=== PATIENT | female | born 1970 | race Caucasian/White ===

== ENCOUNTER 2019-03-04 06:50 | Day surgery (SDC) | payer BC ==
[~2019-03-04 06:50] MED LIST: Lactated Ringers 1,000 ML IV SCH; Lidocaine 1%/Sod Bicarbonate in NS 8.4% 1 ML Syringe IDERM PRN; Sodium Chloride 0.9% 10 ML Syringe FLUSH PRN
[2019-03-04] MEDS ORDERED: Lidocaine 1% 30 ML SDV ONE (06:52)
[2019-03-04] MEDS ORDERED: Triamcinolone Acetonide 40 MG/ML 1 ML MDV ONE (06:52)
[2019-03-04] MEDS: Bupivacaine 0.25% 10 ML SDV ONE ×2 (07:33→07:45)
--- NOTE | 2019-03-08 17:09 | PCM.OPNOTE ---
- General Post-Op/Procedure Note Date of Surgery/Procedure: 03/04/19 Operative Procedure(s): left carpal tunnel release with right carpal tunnel injection Pre Op Diagnosis: bilateral median nerve compression neuropathy Post-Op Diagnosis: Same Anesthesia Technique: Local Primary Surgeon: Larry Hooker Professional Fighter: Magy Arevalo in mLs: 5 Complications: None Condition: Good
--- NOTE | 2019-03-09 11:21 | OR ---
DATE OF OPERATION: 03/04/2019 SURGEON: Larry Hooker MD OPERATION PERFORMED: Left carpal tunnel release with right carpal tunnel injection. PREOPERATIVE DIAGNOSIS: Bilateral median nerve compression neuropathy. POSTOPERATIVE DIAGNOSIS: Bilateral median nerve compression neuropathy. ANESTHESIA: Local only. CLINICAL SCIENCES PROFESSOR: Magy Arevalo PA-C. ESTIMATED BLOOD LOSS: Less than 5 mL. COMPLICATIONS: None. CONDITION: Stable. ANESTHESIA PROVIDER: None. DESCRIPTION OF PROCEDURE: The patient was identified in the preop holding area. Proper site was marked and identified by the surgeon. The patient was taken back to the operating theater where after adequate anesthesia, the patient's left upper extremity was sterilely prepped and draped in the usual sterile fashion. OR time-out was performed. The patient did not receive antibiotics and it is not indicated for soft tissue hand procedure. At this time, the left upper extremity was exsanguinated and an Esmarch was used as a tourniquet on the forearm. At this time, using 1% lidocaine without epinephrine and 0.25% Marcaine without epinephrine, the palmar cutaneous branch of the median nerve was anesthetized and then the incisional site was anesthetized using Castaneda cardinal line and ulnar border of the fourth digit as reference. Once this had set up, an incision was made. Blunt dissection was taken down to the palmar cutaneous fascia. Palmar cutaneous fascia was incised with a Knik blade. At this time, the transverse carpal ligament was identified. A small rent was made in the transverse carpal ligament with a Knik blade under direct visualization. Resection of the transverse carpal ligament was done distally using tenotomy scissors making sure to stop short of the palmar arch. At this time, attention was turned proximally after it was found to be adequately released. Using the tenotomy scissors keeping the tips ulnar to protect the palmar cutaneous branch of the median nerve, the superficial forearm fascia as well as the transverse carpal ligament were resected proximally. It was found to be adequate release both proximally and distally. At this time, adequate saline was irrigated through the wound. 4-0 nylon sutures were used closure of the skin. The patient was placed in a sterile soft dressing and sent to PACU in stable condition. After this was completed, under sterile technique, 1 mL of 40 mg of Kenalog and 2 mL of 0.25% Marcaine were injected at the right carpal tunnel. The patient tolerated both procedures well. JANEEN: 03/09/2019 10:58:41 MARC /[id number]
== END 2019-03-04 08:05 | disposition home or self-care (01) ==
LOC: JD.SDS 06:50
PROVIDERS: ATTEND Orthopaedic Surgery
DX: G56.03 Carpal tunnel syndrome, bilateral upper limbs (principal); I10 Essential (primary) hypertension; E03.9 Hypothyroidism, unspecified; E66.3 Overweight; Z68.31 Body mass index [BMI] 31.0-31.9, adult; Z79.899 Other long term (current) drug therapy
CPT/HCPCS: 64721; 87641; J2001; J3301; J3490

== ENCOUNTER 2022-07-17 16:03 | Emergency (ER) | payer BC ==
[2022-07-17] MEDS ORDERED: Sodium Chloride 0.9% 1,000 ML IV ONE (16:39)
[2022-07-17] MEDS ORDERED: Ondansetron 4 MG/2 ML SDV IVPUSH ONE (16:39)
[2022-07-17] MEDS ORDERED: HYDROmorphone 0.5 MG/0.5 ML Syringe IVPUSH ONE ×2 (16:39→17:39)
[2022-07-17] MEDS ORDERED: Sodium Chloride 0.9% 10 ML Syringe FLUSH PRN (16:39)
[2022-07-17] MEDS ORDERED: Piperacillin/Tazobactam 4.5 GM in Sodium Chloride 0.9% 100 ML IV ONE (18:18)
[2022-07-17] MEDS ORDERED: Rocuronium 50 MG/5 ML Vial ONE (18:37)
[2022-07-17] MEDS ORDERED: Bupivacaine 0.5%/EPINEPHrine 1:200,000 50 ML MDV ONE (18:37)
[2022-07-17] MEDS ORDERED: Midazolam 1 MG/ML 2 ML SDV ONE (18:37)
[2022-07-17] MEDS ORDERED: Propofol 200 MG/20 ML SDV ONE (18:37)
[2022-07-17] MEDS ORDERED: fentaNYL 250 MCG/5 ML SDV ONE (18:37)
[2022-07-17] MEDS ORDERED: Lidocaine 1% with EPINEPHrine 1:100,000 10 ML MDV ONE (18:37)
[2022-07-17] MEDS ORDERED: Ondansetron 4 MG/2 ML SDV ONE (18:37)
[2022-07-17] MEDS ORDERED: Lidocaine 1% 5 ML VIAL ONE (18:37)
[2022-07-17] MEDS ORDERED: Dexamethasone 4 MG/ML 5 ML MDV ONE (19:26)
[2022-07-17] MEDS ORDERED: Neostigmine Methylsulfate 10 MG/10 ML MDV ONE (19:44)
[2022-07-17] MEDS ORDERED: Ketorolac 30 MG/ML SDV ONE (20:16)
[2022-07-17] MEDS ORDERED: Acetaminophen/oxyCODONE 325-5 MG Tab ONE (21:02)
== END 2022-07-17 19:23 | disposition other institution (70) ==
LOC: JD.ED 16:03 → MERGE 16:03 → JD.ED 19:23
DX: K35.80 Unspecified acute appendicitis (principal); E03.9 Hypothyroidism, unspecified; E66.9 Obesity, unspecified; Z68.31 Body mass index [BMI] 31.0-31.9, adult; Z79.899 Other long term (current) drug therapy
CPT/HCPCS: 36415; 74177; 80053; 83735; 85025; 86140; 96361; 96365; 96375; 96376; 99285; J1100; J1170; J1885; J2250; J2405; J2543; J2704; J2710; J3010; J3490; J7030

== ENCOUNTER 2023-03-10 05:55 | Day surgery (SDC) | payer BC ==
[2023-03-10] MEDS ORDERED: Lidocaine 1% 10 ML MDV ONE (06:07)
[2023-03-10] MEDS ORDERED: Bupivacaine 0.25% 10 ML SDV ONE (06:07)
== END 2023-03-10 07:19 | disposition home or self-care (01) ==
LOC: JD.SDS 05:55
PROVIDERS: ATTEND Orthopaedic Surgery
DX: G56.01 Carpal tunnel syndrome, right upper limb (principal); E03.8 Other specified hypothyroidism; F32.A Depression, unspecified; Z98.890 Other specified postprocedural states; Z79.899 Other long term (current) drug therapy; Z79.890 Hormone replacement therapy
CPT/HCPCS: 64721; J3490

== ENCOUNTER 2023-04-22 17:13 | Emergency (ER) | payer OTHER, BC ==
[2023-04-22] MEDS ORDERED: Lidocaine 1% 5 ML VIAL INJECT ONE (17:23)
[2023-04-22] MEDS ORDERED: Diphtheria,Pertussis(Acell),Tetanus Vaccine 0.5 ML Syringe IM ONE (17:24)
[2023-04-22] MEDS ORDERED: Lidocaine 1% 10 ML MDV INJECT ONE (17:31)
== END 2023-04-22 18:30 | disposition home or self-care (01) ==
LOC: JD.ED 17:13
DX: S01.01XA Laceration without foreign body of scalp, initial encounter (principal); S09.90XA Unspecified injury of head, initial encounter; E03.9 Hypothyroidism, unspecified; E66.9 Obesity, unspecified; Z68.33 Body mass index [BMI] 33.0-33.9, adult; Z23 Encounter for immunization; Z79.899 Other long term (current) drug therapy; W22.8XXA Striking against or struck by other objects, initial encounter; Y92.69 Other specified industrial and construction area as the place of occurrence of the external cause
CPT/HCPCS: 12002; 90471; 90715; 99282-25; J3490